=== PATIENT | male | born 1970 | race Caucasian/White ===

== ENCOUNTER 2019-12-03 21:05 | Emergency (ER) | payer SELFPAY ==
[~2019-12-03] VITALS: Ht 182.9 cm; Wt 90.7 kg
[2019-12-03 21:22] VITALS: BP_SYST 145
--- NOTE | 2019-12-03 21:28 | NUR ---
Patient triaged and placed in waiting room. VSS and patient appears in no acute distress at this time. Accompanied by , awaiting available bed, and MD notified of need for MSE.
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
--- NOTE | 2019-12-03 21:51 | NUR ---
Patient to ER bed 1 to gown for evaluation. Side rails up.
--- NOTE | 2019-12-03 21:55 | NUR ---
xray at bedside.
--- NOTE | 2019-12-03 22:10 | NUR ---
ER Dr. Santiago at bedside examining patient.
--- NOTE | 2019-12-03 22:16 | NUR ---
TECH AT BEDSIDE CLEANING LACERATION AND ABRASIONS.
[2019-12-03] MEDS ORDERED: LIDOCAINE 1%, 20 ML MDV 20 ML ONE (23:33)
--- NOTE | 2019-12-03 23:36 | NUR ---
AT BEDSIDE PERFORMING LACERATION REPAIR.
--- NOTE | 2019-12-04 00:02 | NUR ---
Patient has a 2 cm laceration to RIGHT ARGUETA AND 1 CM LACERATION TO RIGHT ARGUETA. Dr. WASHINGTON applied 4 sutures using sterile technique. Edges well approximated. Site cleansed with IODINE AND NORMAL SALINE. Dressing of NON-ADHERENT applied to site. No bleeding noted. Pt tolerated well.
[2019-12-04] MEDS ORDERED: KETOROLAC TROMETHAMINE 60 MG/2 ML VIAL IM ONE (00:15)
[2019-12-04] MEDS ORDERED: cefTRIAXone 1 GM in LIDOCAINE 1%, 20 ML MDV 2.1 ML IM ONE (00:15)
[2019-12-04] MEDS ORDERED: DIPH-TET-PERTUS Vaccine 0.5 ML VIAL (ADACEL) I.M. ONE (00:15)
[2019-12-04] MEDS ORDERED: LIDOCAINE 1% 10 MG/ML, 20 ML MDV INJ ONE (00:15)
[2019-12-04] MEDS ORDERED: BACITRACIN ZINC 15 GM TOPICAL OINTMENT TP ONE (00:15)
[2019-12-04] MEDS ORDERED: BACITRACIN 1 GM OINT TP ONE (00:24)
[2019-12-04 00:45] VITALS: BP_SYST 122
--- NOTE | 2019-12-04 00:45 | NUR ---
Patient given written and verbal discharge instructions and verbalizes understanding. ER MD discussed with patient the results and treatment provided. Patient in stable condition. ID arm band removed. Rx of NORCO, KEFLEX, IBUPROFEN given. Patient educated on pain management and to follow up with PMD. Pain Scale 3/10. Opportunity for questions provided and answered. Medication side effect fact sheet provided.
== END 2019-12-04 00:45 | disposition home or self-care (01) ==
LOC: SED 21:05
DX: S81.811A Laceration without foreign body, right lower leg, initial encounter (principal); W54.0XXA Bitten by dog, initial encounter; Y93.I9 Activity, other involving external motion; Y92.89 Other specified places as the place of occurrence of the external cause; Y99.8 Other external cause status
CPT/HCPCS: 12002; 73110; 90471; 90715; 96372; 99284; J0696; J1885; J2001 ×2

== ENCOUNTER 2023-01-06 13:08 | Emergency (ER) | payer OTHER ==
[~2023-01-06] VITALS: Ht 180.3 cm; Wt 83.0 kg
[2023-01-06 13:50] VITALS: BP_SYST 125; PULSE 66; RESP 16; TEMP 98.2; O2SAT 97
[2023-01-06 16:09] VITALS: BP_SYST 117; PULSE 56; RESP 16; TEMP 98.2; O2SAT 98
== END 2023-01-06 18:09 | disposition home or self-care (01) ==
LOC: SED 13:08
DX: S16.1XXA Strain of muscle, fascia and tendon at neck level, initial encounter (principal); R51.9 Headache, unspecified; M54.50 Low back pain, unspecified; Z79.899 Other long term (current) drug therapy; V89.2XXA Person injured in unspecified motor-vehicle accident, traffic, initial encounter; Y93.89 Activity, other specified; Y92.89 Other specified places as the place of occurrence of the external cause; Y99.8 Other external cause status
CPT/HCPCS: 70450-TC; 72125-TC; 76376; 99284